=== PATIENT | female | born 1985 | race Caucasian/White ===

== ENCOUNTER 2019-06-20 11:28 | Emergency (ER) | payer MEDICAID ==
[~2019-06-20] VITALS: Ht 175.3 cm; Wt 83.9 kg
[~2019-06-20 11:28] MED LIST: BUP100T PO; GABA300C10 PO; ZIPR80CA9 PO
[2019-06-20 14:05] LABS: Basophils # (auto) 0.1 uL; Eosinophils # (auto) 0.1 uL; Hemoglobin 14.8 g/dL (12.2-16.2); Lymphocytes % (auto) 21.8 % (10.0-50.0); Mean Corpuscular Hemoglobin 30.5 pg (28.0-32.0); Mean Corpuscular Hgb Conc. 34.4 g/dL (32.0-36.0); Mean Corpuscular Volume 88.6 fL (80.0-100.0); Monocytes # (auto) 0.6 uL; Monocytes % (auto) 6.2 % (0.0-12.0); Neutrophils # (auto) 6.3 uL; Platelet Count (auto) 264 10^3/uL (140-450); Red Blood Cells 4.85 10^6/uL (4.0-5.20); Red Cell Distribution Width 12.5 % (11.8-14.3)
[2019-06-20 14:08] VITALS: BP 111/65
[2019-06-20 14:27] LABS: Albumin 3.6 g/dL (3.4-5.0); Calcium 8.8 mg/dL (8.5-10.1); Potassium 4.5 mmol/L (3.5-5.1)
[2019-06-20 14:31] LABS: BUN/Creatinine Ratio 12.5; Bilirubin, Total 0.3 mg/dL (0.2-1.0); Total Protein 7.3 g/dL (6.4-8.2)
[2019-06-25] MEDS ORDERED: METR500T PO (01:21)
== END 2019-06-20 16:11 | disposition home or self-care (01) ==
LOC: EDBD 11:28 → ER 11:28
DX: F41.9 Anxiety disorder, unspecified (principal); R89.1 Abnormal level of hormones in specimens from other organs, systems and tissues; F17.210 Nicotine dependence, cigarettes, uncomplicated; F12.10 Cannabis abuse, uncomplicated; R42 Dizziness and giddiness
CPT/HCPCS: 36415; 76801; 80053; 84702; 85025; 93005

== ENCOUNTER 2019-12-31 00:53 | Emergency (ER) | payer MEDICAID ==
[~2019-12-31] VITALS: Ht 172.7 cm; Wt 68.0 kg
[~2019-12-31 00:53] MED LIST changes: -BUP100T PO; -GABA300C10 PO; +METR500T PO; -ZIPR80CA9 PO
[2019-12-31 01:39] LABS: Basophils # (auto) 0.1 10 ^3/uL (0-0.2); Basophils % (auto) 0.5 % (0.0-2.0); Eosinophils # (auto) 0.1 10 ^3/uL (0-0.8); Eosinophils % (auto) 0.8 % (0.0-7.0); Hematocrit 41.1 % (36.0-46.0); Hemoglobin 13.8 g/dL (12.2-16.2); Lymphocytes # (auto) 1.8 10 ^3/uL (0.4-5.4); Lymphocytes % (auto) 13.1 % (10.0-50.0); Mean Corpuscular Hemoglobin 29.5 pg (28.0-32.0); Mean Corpuscular Hgb Conc. 33.6 g/dL (32.0-36.0); Mean Corpuscular Volume 87.8 fL (80.0-100.0); Monocytes % (auto) 7.5 % (0.0-12.0); Neutrophils # (auto) 10.9 10 ^3/uL (1.6-8.6); Neutrophils % (auto) 78.1 % (37.0-80.0); Platelet Count (auto) 333 10^3/uL (140-450); Red Blood Cells 4.68 10^6/uL (4.0-5.20); Red Cell Distribution Width 13.2 % (11.8-14.3); White Blood Cell 13.9 10^3/uL (4.4-10.8)
[2019-12-31 01:56] LABS: Alanine Aminotransferase 28 U/L (13-56); Albumin 3.4 g/dL (3.4-5.0); Anion Gap 5 (5-15); Aspartate Aminotransferase 21 U/L (15-37); BUN/Creatinine Ratio 10.3; Blood Alcohol < 3.0 mg/dL (0-5); Blood Urea Nitrogen 8 mg/dL (7-18); Calcium 9.2 mg/dL (8.5-10.1); Carbon Dioxide 26 mmol/L (21-32); Chloride 107 mmol/L (98-107); GFR African American 109 mL/min; GFR Non-African American 90 mL/min; Glucose 101 mg/dL (74-106); Sodium 138 mmol/L (136-145)
[2019-12-31 01:58] LABS: Alkaline Phosphatase 81 U/L (45-117); Bilirubin, Total 0.3 mg/dL (0.2-1.0); Total Protein 7.5 g/dL (6.4-8.2)
[2019-12-31 06:12] VITALS: BP 128/74
== END 2019-12-31 06:13 | disposition home or self-care (01) ==
LOC: EDBD 00:53 → ER 01:00
DX: S00.83XA Contusion of other part of head, initial encounter (principal); S80.812A Abrasion, left lower leg, initial encounter; S80.811A Abrasion, right lower leg, initial encounter; M62.838 Other muscle spasm; F17.210 Nicotine dependence, cigarettes, uncomplicated; Z90.49 Acquired absence of other specified parts of digestive tract; Z79.899 Other long term (current) drug therapy; W17.89XA Other fall from one level to another, initial encounter; Y93.89 Activity, other specified; Y92.89 Other specified places as the place of occurrence of the external cause; Y99.8 Other external cause status
CPT/HCPCS: 36415; 70450; 70486; 71250; 72125; 74176; 80053; 80320; 85025

== ENCOUNTER 2020-02-20 10:45 | Emergency (ER) | payer MEDICAID ==
[~2020-02-20] VITALS: Ht 175.3 cm; Wt 68.0 kg
[~2020-02-20 10:45] MED LIST changes: -TETANUS-DIPTH-ACEL PERTUSSIS 0.5ML SYR Tdap IM ONE; -cefTRIAXone W LIDOCAINE 1 GM IM IM ONE
[2020-02-20 10:58] VITALS: BP 126/88
== END 2020-02-20 11:40 | disposition home or self-care (01) ==
LOC: ER 10:45
DX: S01.511A Laceration without foreign body of lip, initial encounter (principal); S02.2XXD Fracture of nasal bones, subsequent encounter for fracture with routine healing; F17.210 Nicotine dependence, cigarettes, uncomplicated; F12.10 Cannabis abuse, uncomplicated; F15.10 Other stimulant abuse, uncomplicated; Y04.2XXA Assault by strike against or bumped into by another person, initial encounter; Y93.89 Activity, other specified; Y92.89 Other specified places as the place of occurrence of the external cause; Y99.8 Other external cause status
CPT/HCPCS: 12011

== ENCOUNTER → 2020-02-20 | Emergency (ER) | payer MEDICAID ==
[~2020-02-20] VITALS: Ht 172.7 cm; Wt 68.0 kg
[~2020-02-20] MED LIST changes: +TETANUS-DIPTH-ACEL PERTUSSIS 0.5ML SYR Tdap IM ONE; +cefTRIAXone W LIDOCAINE 1 GM IM IM ONE
[2020-02-20 07:28] VITALS: BP 134/70
== END | disposition home or self-care (01) ==
LOC: EDUNIT# 07:04 → ER 07:15 → EDBD 07:15
DX: S00.83XA Contusion of other part of head, initial encounter (principal); S00.511A Abrasion of lip, initial encounter; F15.10 Other stimulant abuse, uncomplicated; F20.9 Schizophrenia, unspecified; F19.10 Other psychoactive substance abuse, uncomplicated; R04.0 Epistaxis; F17.210 Nicotine dependence, cigarettes, uncomplicated; F12.10 Cannabis abuse, uncomplicated; Y04.2XXA Assault by strike against or bumped into by another person, initial encounter; Y93.89 Activity, other specified; Y92.89 Other specified places as the place of occurrence of the external cause; Y99.8 Other external cause status
CPT/HCPCS: 70450; 70486; 90471; 90715; 96372; 99285; J0696

== ENCOUNTER 2020-02-28 16:57 | Emergency (ER) | payer MEDICAID ==
[~2020-02-28] VITALS: Ht 175.3 cm; Wt 68.0 kg
[2020-02-28 17:06] VITALS: BP 120/87
== END 2020-02-28 17:45 | disposition home or self-care (01) ==
LOC: ER 16:57
DX: S01.511D Laceration without foreign body of lip, subsequent encounter (principal); X58.XXXD Exposure to other specified factors, subsequent encounter

== ENCOUNTER 2021-07-24 09:03 | Emergency (ER) | payer MEDICARE, MEDICAID ==
[~2021-07-24] VITALS: Ht 167.6 cm; Wt 70.3 kg
[2021-07-24 10:17] LABS: Basophils # (auto) 0 10 ^3/uL (0-0.2); Basophils % (auto) 0.4 % (0.0-2.0); Eosinophils # (auto) 0.1 10 ^3/uL (0-0.8); Eosinophils % (auto) 0.9 % (0.0-7.0); Hematocrit 44.7 % (36.0-46.0); Hemoglobin 14.8 g/dL (12.2-16.2); Lymphocytes # (auto) 1.8 10 ^3/uL (0.4-5.4); Lymphocytes % (auto) 17.8 % (10.0-50.0); Mean Corpuscular Hemoglobin 29.1 pg (28.0-32.0); Mean Corpuscular Hgb Conc. 33.1 g/dL (32.0-36.0); Mean Corpuscular Volume 87.8 fL (80.0-100.0); Monocytes # (auto) 0.6 10 ^3/uL (0-1.3); Monocytes % (auto) 5.8 % (0.0-12.0); Neutrophils # (auto) 7.8 10 ^3/uL (1.6-8.6); Neutrophils % (auto) 75.1 % (37.0-80.0); Nucleated Red Blood Cells % 0.1 %; Red Blood Cells 5.09 10^6/uL (4.0-5.20); Red Cell Distribution Width 13.3 % (11.8-14.3); White Blood Cell 10.4 10^3/uL (4.4-10.8)
[2021-07-24 10:45] LABS: Albumin 3.9 g/dL (3.4-5.0); Anion Gap 8 (5-15); Blood Urea Nitrogen 8 mg/dL (7-18); Calcium 9.1 mg/dL (8.5-10.1); Carbon Dioxide 25 mmol/L (21-32); Chloride 106 mmol/L (98-107); Glucose 92 mg/dL (74-106); Potassium 3.7 mmol/L (3.5-5.1); Sodium 139 mmol/L (136-145)
[2021-07-24 10:49] LABS: Alanine Aminotransferase 21 U/L (13-56); Alkaline Phosphatase 73 U/L (45-117); Aspartate Aminotransferase 10 U/L (15-37); Bilirubin, Total 0.2 mg/dL (0.2-1.0); Blood Alcohol < 3.0 mg/dL (0-5); GFR African American 106 mL/min; GFR Non-African American 87 mL/min; Total Protein 7.5 g/dL (6.4-8.2)
[2021-07-24 11:07] LABS: Salicylate < 1.7 mg/dL (2.8-20.0)
[2021-07-24 11:13] LABS: Acetaminophen < 2.0 ug/mL (10-30)
[2021-07-24 14:05] VITALS: BP 141/80
== END 2021-07-24 14:09 | disposition home or self-care (01) ==
LOC: ER 09:03 → EDBD 09:03 → ER 14:00
DX: T40.2X1A Poisoning by other opioids, accidental (unintentional), initial encounter (principal); R41.82 Altered mental status, unspecified; F20.9 Schizophrenia, unspecified; F17.210 Nicotine dependence, cigarettes, uncomplicated; Z90.49 Acquired absence of other specified parts of digestive tract; Z79.899 Other long term (current) drug therapy; Y92.89 Other specified places as the place of occurrence of the external cause
CPT/HCPCS: 36415; 80053; 80320; 80329; 85025; 93005

== ENCOUNTER → 2023-05-26 | Emergency (ER) | payer OTHER, MEDICAID ==
[~2023-05-26] VITALS: Ht 175.3 cm; Wt 100.0 kg
[~2023-05-26] MED LIST changes: +ONDANSETRON ODT 4 MG TAB PO ONE
[2023-05-26 13:37] LABS: Basophils # (auto) 0.1 10 ^3/uL (0-0.2); Basophils % (auto) 0.5 % (0.0-2.0); Eosinophils # (auto) 0.1 10 ^3/uL (0-0.8); Eosinophils % (auto) 0.8 % (0.0-7.0); Hematocrit 51.4 % (36.0-46.0); Hemoglobin 16.6 g/dL (12.2-16.2); Lymphocytes # (auto) 2.6 10 ^3/uL (0.4-5.4); Lymphocytes % (auto) 23.7 % (10.0-50.0); Mean Corpuscular Hgb Conc. 32.2 g/dL (32.0-36.0); Mean Corpuscular Volume 90.1 fL (80.0-100.0); Monocytes # (auto) 0.6 10 ^3/uL (0-1.3); Monocytes % (auto) 5.2 % (0.0-12.0); Neutrophils # (auto) 7.6 10 ^3/uL (1.6-8.6); Neutrophils % (auto) 69.8 % (37.0-80.0); Nucleated Red Blood Cells % 0.2 %; Red Blood Cells 5.71 10^6/uL (4.0-5.20); Red Cell Distribution Width 13.4 % (11.8-14.3); White Blood Cell 10.9 10^3/uL (4.4-10.8)
[2023-05-26 14:00] VITALS: PULSE 77; RESP 21; O2SAT 96
[2023-05-26 14:58] LABS: Salicylate 3.1 mg/dL (2.8-20.0)
[2023-05-26 15:10] LABS: Acetaminophen < 2.0 ug/mL (10-30)
[2023-05-26 15:12] LABS: Alanine Aminotransferase 37 U/L (13-56); Albumin 3.7 g/dL (3.4-5.0); Anion Gap 5 (5-15); Blood Alcohol < 3.0 mg/dL (<10); Blood Urea Nitrogen 10 mg/dL (7-18); Carbon Dioxide 24 mmol/L (21-32); Chloride 109 mmol/L (98-107); Glucose 118 mg/dL (74-106); Potassium 3.9 mmol/L (3.5-5.1); Sodium 138 mmol/L (136-145)
[2023-05-26 15:15] LABS: Alkaline Phosphatase 84 U/L (45-117); Aspartate Aminotransferase 16 U/L (15-37); BUN/Creatinine Ratio 10.2 (10.0-20.0); Bilirubin, Total 0.3 mg/dL (0.2-1.0); GFR African American 83 mL/min; GFR Non-African American 68 mL/min; Total Protein 7.7 g/dL (6.4-8.2)
[2023-05-26 18:06] VITALS: BP 100/68; PULSE 72; RESP 13; O2SAT 92
== END | disposition home or self-care (01) ==
LOC: EDUNIT# 12:16 → ER 12:20 → EDSEX 12:20 → EDBD 12:20
DX: T40.411A Poisoning by fentanyl or fentanyl analogs, accidental (unintentional), initial encounter (principal); R11.0 Nausea; F41.9 Anxiety disorder, unspecified; F20.9 Schizophrenia, unspecified; F32.9 Major depressive disorder, single episode, unspecified; F17.210 Nicotine dependence, cigarettes, uncomplicated; F12.10 Cannabis abuse, uncomplicated; F15.10 Other stimulant abuse, uncomplicated; Y92.9 Unspecified place or not applicable
CPT/HCPCS: 36415; 80053; 80320; 80329; 85025; 99283; Q0162